=== PATIENT | male | born 1970 | race Asian ===

== ENCOUNTER → 2017-04-04 | Outpatient (REF) | payer OTHER ==
[2017-04-04 19:29] LABS: THYROID PEROXIDASE ANTIBODY < 28.0 U/ML (<60.0)
[2017-04-07 00:06] LABS: T PALLIDUM ANTIBODIES Negative (Negative)
== END ==
LOC: M LAB REF 16:31
PROVIDERS: ATTEND Nurse Practitioner Adult Health
DX: L63.9 Alopecia areata, unspecified (principal); Z11.59 Encounter for screening for other viral diseases

== ENCOUNTER → 2018-09-19 | Outpatient (REF) | payer OTHER ==
[2018-09-20 10:16] LABS: HEPATITIS A ANTIBODY IGM NEGATIVE (NEGATIVE); HEPATITIS B CORE ANTIBODY IGM NEGATIVE (NEGATIVE); HEPATITIS B SURFACE ANTIGEN NEGATIVE (NEGATIVE); HIV 1&2 SCREEN CENTAUR NEGATIVE (NEGATIVE)
[2018-09-20 10:16] LABS: HEPATITIS C VIRUS ABY INDEX < 0.0 INDEX (<0.8)
[2018-09-20 11:09] LABS: GOLD SPEC TUBE RECIEVED
[2018-09-22 00:07] LABS: HSV IgM TYPES 1&2 <0.91 Ratio (0.00-0.90)
== END ==
LOC: M LABDRAW1 17:07
DX: Z11.3 Encounter for screening for infections with a predominantly sexual mode of transmission (principal)

== ENCOUNTER → 2018-12-12 | Outpatient (REF) | payer BC ==
[2018-12-12 11:57] LABS: BASO # 0.1 10^3/uL (0.0-0.2); EOS # 0.1 10^3/uL (0.0-0.50); EOS % 2.1 % (0.0-3.0); HEMATOCRIT 44.7 % (42.0-52.0); HEMOGLOBIN 14.9 g/dl (13.5-17.5); LYMPH % 33.4 % (24.0-44.0); MEAN CORPUSCULAR HGB CONC 33.3 g/dl (32.0-36.5); MONO # 0.6 10^3/uL (0.0-0.8); MONO % 9.9 % (0.0-5.0); NEUTROPHILS # 3.1 10^3/uL (1.8-7.7); NEUTROPHILS % 53.4 % (36.0-66.0); PLATELET COUNT, AUTOMATED 272 10^3/uL (150-450); RED BLOOD COUNT 5.14 10^6/uL (4.30-6.10); WHITE BLOOD COUNT 5.8 10^3/uL (4.0-10.0)
[2018-12-12 12:18] LABS: ALBUMIN 3.7 GM/DL (3.2-5.2); ALT/SGPT 28 U/L (12-78); BILIRUBIN,TOTAL 0.5 MG/DL (0.2-1.0); BLOOD UREA NITROGEN 23 MG/DL (7-18); C REACTIVE PROTEIN QUANTITATIV < 0.30 MG/DL (0.00-0.30); CALCIUM LEVEL 8.6 MG/DL (8.5-10.1); CARBON DIOXIDE LEVEL 28 MEQ/L (21-32); CHLORIDE LEVEL 103 MEQ/L (98-107); CREATININE FOR GFR 0.98 MG/DL (0.70-1.30); GLOMERULAR FILTRATION RATE > 60.0 (>60); GLUCOSE, FASTING 80 MG/DL (70-100); SODIUM LEVEL 142 MEQ/L (136-145); TOTAL PROTEIN 6.8 GM/DL (6.4-8.2)
== END ==
LOC: M LABDRAW1 11:11
PROVIDERS: ATTEND Nurse Practitioner Adult Health
DX: G45.3 Amaurosis fugax (principal)

== ENCOUNTER → 2019-08-15 | Outpatient (CLI) | payer BC ==
[~2019-08-15] MED LIST: PROHANCE 279.3MG/ML 15ML VIAL (A9576) As Ordered ONE
--- NOTE | 2019-08-15 20:24 | REPVR ---
PROCEDURE INFORMATION: Exam: MR Lumbar Spine Without Contrast. Exam date and time: 08/15/2019 7:37 PM Clinical history: 49 years old, male; Pain; Left; Patient HX: Lbp lt sided sciatica since 3am nki no priors; Additional info: Sciatica, R/O hnp TECHNIQUE: Imaging protocol: Multiplanar magnetic resonance images of the lumbar spine without intravenous contrast. COMPARISON: No relevant prior studies available. FINDINGS: Vertebrae: Unremarkable. Spinal cord: Normal signal. No cord compression. L1-L2: No significant disc disease. No significant spinal stenosis. L2-L3: No significant disc disease. No significant spinal stenosis. L3-L4: No significant disc disease. No significant spinal stenosis. L4-L5: Mild diffuse annular bulge at L4-5 with mild loss of disc height. No central spinal stenosis. No lateral recess or foraminal stenosis. L5-S1: No significant disc disease. No significant spinal stenosis. Soft tissues: Unremarkable. IMPRESSION: Annular bulge L4-5 without neural compromise. Otherwise unremarkable. Electronically signed by: Michael Sanders On 08/15/2019 20:23:47 PM
== END ==
LOC: M RAD 18:30
PROVIDERS: ATTEND Physician Assistant
DX: M54.30 Sciatica, unspecified side (principal); M51.26 Other intervertebral disc displacement, lumbar region

== ENCOUNTER → 2019-08-15 | Outpatient (CLI) | payer BC | LOC: M LAB 19:51 | PROVIDERS: ATTEND Physician Assistant | DX: M54.30 Sciatica, unspecified side (principal) ==

== ENCOUNTER → 2019-08-17 | Outpatient (CLI) | payer BC ==
--- NOTE | 2019-08-18 07:47 | REP ---
MRI PELVIS WITH AND WITHOUT CONTRAST: TECHNIQUE: Multiple sequences obtained in the axial, coronal and sagittal planes prior to and following the intravenous administration of 13 mL ProHance. There is mild spurring at the anterior aspect of both sacroiliac joints. There is mild marrow edema in the anterior lateral left sacrum along the left sacroiliac joint compatible with some very mild sacroiliitis. There is only minimal enhancement after administration of gadolinium. No other abnormal bone marrow signal is seen of the osseous structures of the pelvis. There is no other area of marrow edema. There is no occult fracture. There is no abnormal bone marrow enhancement elsewhere. Within the pelvis, no adenopathy or mass is seen. There is no free fluid. No abnormality is seen along the lumbosacral plexus. Minimal fluid is seen in the region of the right iliopsoas bursa which may indicate mild right iliopsoas bursitis. On the left there is a 9 mm cyst which is posterior to the anterior-inferior iliac spine along the surface of the bone. This may represent a small ganglion cyst at that location. It is along the superior margin of the left iliofemoral ligament. Adjacent superior labrum is grossly intact. There is no evidence of greater trochanteric tendinobursitis bilaterally. Posteriorly there is ill-defined low signal on T1 and high signal on T2 in the superficial soft tissues, just posterior to the very medial posterior superior iliac crest. There is ill-defined enhancement of these soft tissues. This suggests an area of soft tissue inflammation and possible cellulitis. No fluid collection is seen. IMPRESSION: No intrapelvic abnormality. There is mild spurring along the anterior sacroiliac joints bilaterally with very mild left-sided sacroiliitis anteriorly. There are findings suggesting very mild right-sided iliopsoas bursitis. There is a 9 mm cyst along the cortical surface of the inferior aspect of the left iliac bone, just posterior to the left anterior-inferior iliac spine. It is at the superior margin of the left iliofemoral ligament. This may represent a small ganglion cyst. Focal area of ill-defined soft tissue edema and enhancement at the level of the left superior iliac crest, posteromedial aspect. The area is about 3 cm in diameter. This may represent focal soft tissue inflammation and possibly cellulitis. No fluid collection or abscess is seen. Electronically Signed by Mc Cedillo MD 08/19/2019 05:42 P
== END ==
LOC: M RAD 18:21
PROVIDERS: ATTEND Physician Assistant
DX: M54.42 Lumbago with sciatica, left side (principal)

== ENCOUNTER → 2019-08-21 | Outpatient (CLI) | payer BC ==
[2019-08-21 20:00] LABS: BASO % 0.7 % (0.0-1.0); EOS # 0.1 10^3/uL (0.0-0.5); EOS % 1.3 % (0.0-3.0); HEMATOCRIT 45.1 % (42.0-52.0); LYMPH # 1.2 10^3/uL (1.5-5.0); LYMPH % 20.4 % (24.0-44.0); MEAN CORPUSCULAR HEMOGLOBIN 29.1 pg (27.0-33.0); MEAN CORPUSCULAR HGB CONC 33.3 g/dl (32.0-36.5); MEAN CORPUSCULAR VOLUME 87.4 fl (80.0-96.0); MONO # 0.5 10^3/uL (0.0-0.8); MONO % 7.8 % (0.0-5.0); NEUTROPHILS # 4.2 10^3/uL (1.5-8.5); NEUTROPHILS % 69.5 % (36.0-66.0); PLATELET COUNT, AUTOMATED 239 10^3/uL (150-450); RED BLOOD COUNT 5.16 10^6/uL (4.30-6.10)
== END ==
LOC: M LAB 19:00
PROVIDERS: ATTEND Physician Assistant
DX: M54.30 Sciatica, unspecified side (principal)

== ENCOUNTER → 2019-09-17 | Outpatient (CLI) | payer BC | LOC: M LAB 18:46 | PROVIDERS: ATTEND Physician Assistant | DX: M54.42 Lumbago with sciatica, left side (principal) ==

== ENCOUNTER → 2020-03-21 | Outpatient (CLI) | payer BC ==
[2020-03-21 08:20] LABS: BASO # 0.1 10^3/uL (0.0-0.2); BASO % 0.9 % (0.0-1.0); EOS # 0.1 10^3/uL (0.0-0.5); EOS % 2.2 % (0.0-3.0); HEMATOCRIT 47.5 % (42.0-52.0); HEMOGLOBIN 16.1 g/dl (13.5-17.5); LYMPH # 2.5 10^3/uL (1.5-5.0); LYMPH % 44.8 % (24.0-44.0); MEAN CORPUSCULAR HEMOGLOBIN 29.3 pg (27.0-33.0); MEAN CORPUSCULAR HGB CONC 33.9 g/dl (32.0-36.5); MEAN CORPUSCULAR VOLUME 86.4 fl (80.0-96.0); MONO # 0.5 10^3/uL (0.0-0.8); MONO % 9.7 % (0.0-5.0); NEUTROPHILS # 2.3 10^3/uL (1.5-8.5); PLATELET COUNT, AUTOMATED 252 10^3/uL (150-450); WHITE BLOOD COUNT 5.5 10^3/uL (4.0-10.0)
[2020-03-21 08:56] LABS: ERYTHROCYTE SEDIMENTATION RATE 6 mm/hr (0-15)
== END ==
LOC: M LAB 07:48
PROVIDERS: ATTEND Orthopaedic Surgery
DX: M79.644 Pain in right finger(s) (principal)

== ENCOUNTER → 2021-02-27 | Outpatient (REF) | payer BC | LOC: M LAB REF 12:08 | PROVIDERS: ATTEND Physician Assistant Medical | DX: M25.511 Pain in right shoulder (principal) ==

== ENCOUNTER 2021-06-02 20:07 | Emergency (ER) | payer BC ==
[~2021-06-02] VITALS: Ht 170.2 cm; Wt 69.1 kg
[2021-06-02 20:08] VITALS: BP 162/88
[2021-06-02] MEDS ORDERED: D 50CAP2 PO (20:45)
[2021-06-02] MEDS ORDERED: FINA5TAB2 PO (20:45)
[2021-06-02] MEDS ORDERED: TRET0.02 TOP (20:45)
[2021-06-02] MEDS ORDERED: MONT10TA10 PO (20:45)
[2021-06-02] MEDS ORDERED: NS 1,000 ML IV SCH (21:05)
[2021-06-02] MEDS ORDERED: KETOROLAC 30 MG/ML 1ML VIAL IV ONE (21:05)
[2021-06-02] MEDS ORDERED: ONDANSETRON 4MG/2ML VIAL IV ONE (21:05)
[2021-06-02 22:04] LABS: BASO % 0.5 % (0.0-1.0); EOS % 0.3 % (0.0-3.0); HEMATOCRIT 48.3 % (42.0-52.0); HEMOGLOBIN 15.8 g/dl (13.5-17.5); LYMPH # 1.1 10^3/uL (1.5-5.0); LYMPH % 12.6 % (24.0-44.0); MEAN CORPUSCULAR HEMOGLOBIN 28.3 pg (27.0-33.0); MEAN CORPUSCULAR HGB CONC 32.7 g/dl (32.0-36.5); MEAN CORPUSCULAR VOLUME 86.4 fl (80.0-96.0); MONO # 0.6 10^3/uL (0.0-0.8); MONO % 6.3 % (2.0-8.0); NEUTROPHILS # 7.1 10^3/uL (1.5-8.5); NEUTROPHILS % 80.1 % (36.0-66.0); PLATELET COUNT, AUTOMATED 259 10^3/uL (150-450); RED BLOOD COUNT 5.59 10^6/uL (4.30-6.10); WHITE BLOOD COUNT 8.8 10^3/uL (4.0-10.0)
--- NOTE | 2021-06-02 22:04 | REPVR ---
PROCEDURE INFORMATION: Exam: CT Abdomen And Pelvis Without Contrast Exam date and time: 06/02/2021 9:12 PM Age: 50 years old Clinical indication: Abdominal pain; Localized; Right; Additional info: Rlq pain renal calc vs appi TECHNIQUE: Imaging protocol: Computed tomography of the abdomen and pelvis without contrast. Radiation optimization: All CT scans at this facility use at least one of these dose optimization techniques: automated exposure control; mA and/or kV adjustment per patient size (includes targeted exams where dose is matched to clinical indication); or iterative reconstruction. COMPARISON: MRI PELVIS W/O FOLL WITH CON 08/17/2019 7:02 PM FINDINGS: Liver: Normal. No mass. Gallbladder and bile ducts: Normal. No calcified stones. No ductal dilation. Pancreas: Normal. No ductal dilation. Spleen: Normal. No splenomegaly. Adrenal glands: Normal. No mass. Kidneys and ureters: [id number] right-sided hydroureteronephrosis secondary to 3 mm x 2 mm calculus at the distal right ureter. Stomach and bowel: Unremarkable. No obstruction. No mucosal thickening. Appendix: Normal appendix. Intraperitoneal space: Unremarkable. No free air. No significant fluid collection. Vasculature: There are phleboliths within the pelvis. Mild vascular calcification. Lymph nodes: Unremarkable. No enlarged lymph nodes. Urinary bladder: Unremarkable as visualized. Reproductive: Unremarkable as visualized. Bones/joints: There are mild degenerative changes involving the spine. Soft tissues: Small fat containing umbilical hernia. IMPRESSION: [id number] right-sided hydroureteronephrosis secondary to 3 mm x 2 mm calculus at the distal right ureter. Electronically signed by: Krzysztof Nelson On 06/02/2021 22:04:01 PM
[2021-06-02 22:14] LABS: INR 0.97; PROTHROMBIN TIME 13.1 SECONDS (12.5-14.3)
[2021-06-02] MEDS ORDERED: TAMSULOSIN 0.4 MG CAP PO ONE (22:40)
[2021-06-02] MEDS ORDERED: OXYCODONE/APAP 5MG/325MG(BULK FOR ED) 1 TABLET PO ONE (22:40)
[2021-06-02 22:49] LABS: ALBUMIN 4.3 GM/DL (3.2-5.2); ALT/SGPT 33 U/L (12-78); BILIRUBIN,DIRECT 0.1 MG/DL (0.0-0.2); BILIRUBIN,TOTAL 0.6 MG/DL (0.2-1.0); BLOOD UREA NITROGEN 23 MG/DL (7-18); CARBON DIOXIDE LEVEL 27 MEQ/L (21-32); CHLORIDE LEVEL 104 MEQ/L (98-107); CK-MB VALUE MASS < 1.0 NG/ML (<3.6); CPK CREATINE PHOSPHOKINASE 82 U/L (39-308); CREATININE FOR GFR 1.16 MG/DL (0.70-1.30); GLOMERULAR FILTRATION RATE > 60.0 (>56); GLUCOSE, FASTING 106 MG/DL (70-100); LIPASE 154 U/L (73-393); MB/CK RELATIVE INDEX 1.22 (< OR =4); POTASSIUM SERUM 4.1 MEQ/L (3.5-5.1); SODIUM LEVEL 139 MEQ/L (136-145); TOTAL PROTEIN 7.9 GM/DL (6.4-8.2); TROPONIN I < 0.02 NG/ML (< 0.10)
[2021-06-02] MEDS ORDERED: PERC5TAB12 PO (22:57)
[2021-06-02] MEDS ORDERED: FLOM0.4C39 PO (22:57)
[2021-06-02] MEDS ORDERED: ZOFR4TAB16 PO (22:57)
== END 2021-06-02 23:15 | disposition home or self-care (01) ==
LOC: M ED 20:07
DX: N20.1 Calculus of ureter (principal); Z79.899 Other long term (current) drug therapy
CPT/HCPCS: 74176; 80048; 80076; 81001; 82550; 82553; 83690; 84484; 85025; 85610; 96374; 96375; 99283; J1885; J2405

== ENCOUNTER → 2021-06-08 | Outpatient (REF) | payer BC ==
[~2021-06-08] MED LIST changes: +D 50CAP2 PO; +FINA5TAB2 PO; +FLOM0.4C39 PO; +MONT10TA10 PO; +PERC5TAB12 PO; -PROHANCE 279.3MG/ML 15ML VIAL (A9576) As Ordered ONE; +TRET0.02 TOP; +ZOFR4TAB16 PO
== END ==
LOC: M LAB REF 06-08 15:12
PROVIDERS: ATTEND Nurse Practitioner Adult Health
DX: N20.0 Calculus of kidney (principal)